=== PATIENT | female | born 1995 | race Caucasian/White ===

== ENCOUNTER 2021-09-14 15:29 | Inpatient (IN) | payer MEDICAID, OTHER ==
[~2021-09-14] VITALS: Ht 160 cm; Wt 52.6 kg
[2021-09-14] MEDS ORDERED: DIAZEPAM 5 MG/ML 2 ML SYRINGE ONE (16:10)
[2021-09-14] MEDS ORDERED: DiphenhydrAMINE HCL 50 MG/ML VIAL ONE (16:10)
[2021-09-14] MEDS ORDERED: HALOPERIDOL LACTATE 5 MG/ML VIAL ONE (16:10)
[2021-09-14] MEDS ORDERED: DIAZEPAM 5 MG/ML 2 ML SYRINGE IM ONE (16:15)
[2021-09-14] MEDS ORDERED: HALOPERIDOL LACTATE 5 MG/ML VIAL IM ONE (16:15)
[2021-09-14] MEDS ORDERED: DiphenhydrAMINE HCL 50 MG/ML VIAL IM ONE (16:15)
[2021-09-14 17:43] LABS: BASOPHILS % (AUTO) 0.7 % (0.0-2.0); EOSINOPHILS % (AUTO) 2.5 % (1.0-6.0); HEMATOCRIT 37.4 % (36-46); HEMOGLOBIN 12.5 g/dL (12.0-16.0); LYMPHOCYTES # (AUTO) 1.9 K/uL (1.0-4.8); LYMPHOCYTES % (AUTO) 27.9 % (22.0-44.0); MEAN CORPUSCULAR HEMOGLOBIN 29.4 pg (26.0-34.0); MEAN CORPUSCULAR HGB CONC 33.4 G/dL (31.0-37.0); MEAN CORPUSCULAR VOLUME 88 fL (80-100); MONOCYTES # (AUTO) 0.5 K/uL (0.1-1.0); MONOCYTES % (AUTO) 6.5 % (2.0-9.0); NEUTROPHILS # (AUTO) 4.3 K/uL (1.8-7.7); NEUTROPHILS % (AUTO) 62.4 % (40.0-70.0); PLATELET COUNT (AUTO) 470 K/uL (150-450); RED BLOOD CELL COUNT(AUTO) 4.24 MIL/uL (4.00-5.20); RED CELL DISTRIBUTION WIDTH 13.4 % (11.5-14.5)
[2021-09-14 17:53] LABS: ANION GAP 8 mmol/L (8-16); CALCIUM, TOTAL 9.5 mg/dL (8.8-10.5); CARBON DIOXIDE 30 mmol/L (22-29); CHLORIDE 103 mmol/L (98-107); CREATININE 0.77 mg/dL (0.60-1.30); GLUCOSE,RANDOM 89 mg/dL (70-110); POTASSIUM 4.3 mmol/L (3.5-5.1); SODIUM SERUM 141 mmol/L (136-145); UREA NITROGEN, BLOOD 11 mg/dL (7-18)
[2021-09-14 17:55] LABS: GLOMERULAR FILTR. RATE CALC > 60 mL/min (>60)
[2021-09-14 17:59] LABS: ALANINE AMINOTRANSFERASE 22 U/L (12-78); ALBUMIN 3.3 g/dL (3.4-5.0); ALKALINE PHOSPHATASE 77 U/L (46-116); ASPARTATE AMINOTRANSFERASE 17 U/L (15-37); BILIRUBIN,TOTAL 0.1 mg/dL (0.1-1.0); TOTAL PROTEIN, SERUM 7.4 g/dL (6.4-8.2)
[2021-09-14 19:50] LABS: COVID AG,FIA SOURCE NASAL SWAB
[2021-09-15] MEDS: ZOLPIDEM TARTRATE 10 MG TABLET PO PRN (01:37)
[2021-09-15] MEDS: HALOPERIDOL 5 MG TABLET PO PRN (01:37)
[2021-09-15] MEDS: LORazepam 2 MG TABLET PO PRN (01:38)
[2021-09-15 01:45] VITALS: BP 124/62
[2021-09-15] MEDS ORDERED: IBUPROFEN 400 MG TABLET PO PRN (07:45)
[2021-09-15] MEDS ORDERED: PETROLATUM,WHITE 28 GM JELLY TP PRN (07:45)
[2021-09-15] MEDS ORDERED: ONDANSETRON HCL 4 MG TABLET PO PRN (07:45)
[2021-09-15] MEDS ORDERED: ALBUTEROL SULFATE HFA 90 MCG/PUFF 8 GM INHALER IH PRN (07:45)
[2021-09-15] MEDS ORDERED: CloNIDine HCL 0.1 MG TABLET PO PRN (07:45)
[2021-09-15] MEDS ORDERED: LOPERAMIDE HCL 2 MG CAPSULE PO PRN (07:45)
[2021-09-15] MEDS ORDERED: MAGNESIUM HYDROXIDE SUSPENSION 30 ML UDCUP PO PRN (07:45)
[2021-09-15] MEDS ORDERED: DOCUSATE SODIUM 100 MG CAPSULE PO PRN (07:45)
[2021-09-15] MEDS ORDERED: ACETAMINOPHEN 325 MG TABLET PO PRN (07:45)
[2021-09-15] MEDS ORDERED: NICOTINE 14 MG/24 HOUR PATCH TD PRN (07:45)
[2021-09-15] MEDS ORDERED: MAG HYDROX/AL HYDROX/SIMETH ES 30 ML SUSPENSION UDCUP PO PRN (07:45)
[2021-09-15] MEDS ORDERED: GuaiFENesin/D-METHORPHAN [SUGAR-FREE] 200-20MG/10 ML SYRUP UDCUP PO PRN (07:45)
[2021-09-15 08:21] VITALS: BP 118/79
[2021-09-15] MEDS: AMOX TR/POT CLAV 500 MG/125 MG TABLET PO SCH ×2 (09:00→16:12)
[2021-09-15] MEDS: CIPROFLOXACIN HCL 0.2%/HYDROCORT 1% 10 ML OTIC SUSPENSION AS SCH ×2 (09:00→16:12)
[2021-09-15] MEDS: RisperiDONE 1 MG TABLET PO SCH (20:27)
[2021-09-16 08:12] VITALS: BP 122/72
[2021-09-16] MEDS: CIPROFLOXACIN HCL 0.2%/HYDROCORT 1% 10 ML OTIC SUSPENSION AS SCH ×2 (09:00→16:35)
[2021-09-16] MEDS: AMOX TR/POT CLAV 500 MG/125 MG TABLET PO SCH ×2 (09:00→16:35)
[2021-09-16] MEDS: RisperiDONE 1 MG TABLET PO SCH (20:20)
[2021-09-17] MEDS: ZOLPIDEM TARTRATE 10 MG TABLET PO PRN (00:09)
[2021-09-17] MEDS: HALOPERIDOL 5 MG TABLET PO PRN (00:09)
[2021-09-17] MEDS: LORazepam 2 MG TABLET PO PRN ×2 (00:09→09:15)
[2021-09-17] MEDS: AMOX TR/POT CLAV 500 MG/125 MG TABLET PO SCH ×2 (08:46→16:28)
[2021-09-17] MEDS: CIPROFLOXACIN HCL 0.2%/HYDROCORT 1% 10 ML OTIC SUSPENSION AS SCH ×2 (08:46→16:29)
[2021-09-17 09:07] VITALS: BP 114/70
[2021-09-17] MEDS: RisperiDONE 1 MG TABLET PO SCH (20:02)
[2021-09-17 20:40] VITALS: BP 116/67
[2021-09-18 08:39] VITALS: BP 109/66
[2021-09-18] MEDS: CIPROFLOXACIN HCL 0.2%/HYDROCORT 1% 10 ML OTIC SUSPENSION AS SCH ×2 (08:42→16:22)
[2021-09-18] MEDS: AMOX TR/POT CLAV 500 MG/125 MG TABLET PO SCH ×2 (08:44→16:22)
[2021-09-18] MEDS: LORazepam 2 MG TABLET PO PRN (08:51)
[2021-09-18] MEDS: RisperiDONE 1 MG TABLET PO SCH (20:23)
[2021-09-19 05:56] VITALS: BP 111/73
[2021-09-19] MEDS: CIPROFLOXACIN HCL 0.2%/HYDROCORT 1% 10 ML OTIC SUSPENSION AS SCH ×2 (09:00→16:08)
[2021-09-19] MEDS: MUPIROCIN CALCIUM 2% 22 GM OINTMENT NASAL SCH ×2 (09:00→16:08)
[2021-09-19] MEDS: AMOX TR/POT CLAV 500 MG/125 MG TABLET PO SCH ×2 (09:00→16:08)
[2021-09-19 19:34] VITALS: BP 112/71
[2021-09-19] MEDS: RisperiDONE 1 MG TABLET PO SCH (20:08)
[2021-09-19 20:20] VITALS: BP 114/73
[2021-09-19] MEDS: ZOLPIDEM TARTRATE 10 MG TABLET PO PRN (20:58)
[2021-09-20 08:04] VITALS: BP 113/64
[2021-09-20] MEDS: AMOX TR/POT CLAV 500 MG/125 MG TABLET PO SCH ×2 (09:12→16:32)
[2021-09-20] MEDS: CIPROFLOXACIN HCL 0.2%/HYDROCORT 1% 10 ML OTIC SUSPENSION AS SCH ×2 (09:12→16:32)
[2021-09-20] MEDS: MUPIROCIN CALCIUM 2% 22 GM OINTMENT NASAL SCH ×2 (09:13→16:26)
[2021-09-20] MEDS: LORazepam 2 MG TABLET PO PRN (14:21)
[2021-09-20 20:16] VITALS: BP 120/80
[2021-09-20] MEDS: RisperiDONE 1 MG TABLET PO SCH (20:26)
[2021-09-21 08:00] VITALS: BP 109/63
[2021-09-21] MEDS: AMOX TR/POT CLAV 500 MG/125 MG TABLET PO SCH ×2 (08:26→16:53)
[2021-09-21] MEDS: CIPROFLOXACIN HCL 0.2%/HYDROCORT 1% 10 ML OTIC SUSPENSION AS SCH ×2 (08:27→16:54)
[2021-09-21] MEDS: RisperiDONE 1 MG TABLET PO SCH ×2 (08:27→20:12)
[2021-09-21] MEDS: MUPIROCIN CALCIUM 2% 22 GM OINTMENT NASAL SCH ×2 (08:27→16:53)
[2021-09-21] MEDS: LORazepam 2 MG TABLET PO PRN (18:07)
[2021-09-21] MEDS: ZOLPIDEM TARTRATE 10 MG TABLET PO PRN (20:13)
[2021-09-21 20:18] VITALS: BP 118/79
[2021-09-22 08:21] VITALS: BP 112/69
[2021-09-22] MEDS: CIPROFLOXACIN HCL 0.2%/HYDROCORT 1% 10 ML OTIC SUSPENSION AS SCH ×2 (08:53→17:21)
[2021-09-22] MEDS: MUPIROCIN CALCIUM 2% 22 GM OINTMENT NASAL SCH ×2 (08:54→17:21)
[2021-09-22] MEDS: AMOX TR/POT CLAV 500 MG/125 MG TABLET PO SCH ×2 (08:54→17:21)
[2021-09-22] MEDS: LORazepam 2 MG TABLET PO PRN ×2 (10:19→18:46)
[2021-09-22] MEDS: RisperiDONE 2 MG TABLET PO SCH (20:07)
[2021-09-22] MEDS: ZOLPIDEM TARTRATE 10 MG TABLET PO PRN (20:09)
[2021-09-22 20:19] VITALS: BP 122/78
[2021-09-23] MEDS: RisperiDONE 2 MG TABLET PO SCH ×2 (08:46→20:09)
[2021-09-23] MEDS: MUPIROCIN CALCIUM 2% 22 GM OINTMENT NASAL SCH ×2 (08:46→17:04)
[2021-09-23] MEDS: AMOX TR/POT CLAV 500 MG/125 MG TABLET PO SCH ×2 (08:46→17:03)
[2021-09-23] MEDS: CIPROFLOXACIN HCL 0.2%/HYDROCORT 1% 10 ML OTIC SUSPENSION AS SCH ×2 (08:46→17:03)
[2021-09-23 09:36] VITALS: BP 121/71
[2021-09-23] MEDS: LORazepam 2 MG TABLET PO PRN (17:09)
[2021-09-23 20:33] VITALS: BP 101/60
[2021-09-23] MEDS: ZOLPIDEM TARTRATE 10 MG TABLET PO PRN (20:57)
[2021-09-24] MEDS: RisperiDONE 2 MG TABLET PO SCH ×2 (08:57→21:50)
[2021-09-24] MEDS: CIPROFLOXACIN HCL 0.2%/HYDROCORT 1% 10 ML OTIC SUSPENSION AS SCH ×2 (08:57→17:42)
[2021-09-24] MEDS: AMOX TR/POT CLAV 500 MG/125 MG TABLET PO SCH (08:57)
[2021-09-24] MEDS: LORazepam 2 MG TABLET PO PRN ×2 (09:19→14:33)
[2021-09-24 09:22] VITALS: BP 100/65
[2021-09-24 20:23] VITALS: BP 104/61
[2021-09-25 08:00] VITALS: BP 118/69
[2021-09-25] MEDS: RisperiDONE 2 MG TABLET PO SCH (08:54)
[2021-09-25] MEDS ORDERED: RISP2TAB86 PO (09:27)
== END 2021-09-25 14:10 | disposition home or self-care (01) | DRG 750 ==
LOC: EMS 15:29 → B3A 21:57
PROVIDERS: ADMIT Psychiatry & Neurology Psychiatry; ATTEND Psychiatry & Neurology Psychiatry
DX: F20.1 Disorganized schizophrenia (principal); Z91.14 Patient's other noncompliance with medication regimen; D75.839 Thrombocytosis, unspecified; F10.10 Alcohol abuse, uncomplicated; F15.10 Other stimulant abuse, uncomplicated; Z20.822 Contact with and (suspected) exposure to COVID-19; Z79.899 Other long term (current) drug therapy; Z59.02 Unsheltered homelessness
CPT/HCPCS: 80053; 85025; 87081; 99285; G0480; J1200; J1630

== ENCOUNTER 2021-09-26 20:12 | Inpatient (IN) | payer MEDICAID ==
[~2021-09-26] VITALS: Ht 160 cm; Wt 61.6 kg
[~2021-09-26 20:12] MED LIST: RISP2TAB86 PO
[2021-09-26] MEDS ORDERED: ZOLPIDEM TARTRATE 10 MG TABLET PO PRN (21:45)
[2021-09-26 22:58] VITALS: BP 132/78
[2021-09-27] MEDS ORDERED: PETROLATUM,WHITE 28 GM JELLY TP PRN (06:45)
[2021-09-27] MEDS ORDERED: CloNIDine HCL 0.1 MG TABLET PO PRN (06:45)
[2021-09-27] MEDS ORDERED: ALBUTEROL SULFATE HFA 90 MCG/PUFF 8 GM INHALER IH PRN (06:45)
[2021-09-27] MEDS ORDERED: NICOTINE 14 MG/24 HOUR PATCH TD PRN (06:45)
[2021-09-27] MEDS ORDERED: IBUPROFEN 400 MG TABLET PO PRN (06:45)
[2021-09-27] MEDS ORDERED: MAGNESIUM HYDROXIDE SUSPENSION 30 ML UDCUP PO PRN (06:45)
[2021-09-27] MEDS ORDERED: GuaiFENesin/D-METHORPHAN [SUGAR-FREE] 200-20MG/10 ML SYRUP UDCUP PO PRN (06:45)
[2021-09-27] MEDS ORDERED: ONDANSETRON HCL 4 MG TABLET PO PRN (06:45)
[2021-09-27] MEDS ORDERED: LOPERAMIDE HCL 2 MG CAPSULE PO PRN (06:45)
[2021-09-27] MEDS ORDERED: MAG HYDROX/AL HYDROX/SIMETH ES 30 ML SUSPENSION UDCUP PO PRN (06:45)
[2021-09-27] MEDS ORDERED: DOCUSATE SODIUM 100 MG CAPSULE PO PRN (06:45)
[2021-09-27 07:16] LABS: BASOPHILS % (AUTO) 0.6 % (0.0-2.0); EOSINOPHILS % (AUTO) 3.8 % (1.0-6.0); HEMATOCRIT 30.1 % (36-46); HEMOGLOBIN 10.1 g/dL (12.0-16.0); LYMPHOCYTES % (AUTO) 34.4 % (22.0-44.0); MEAN CORPUSCULAR HEMOGLOBIN 29.9 pg (26.0-34.0); MEAN CORPUSCULAR HGB CONC 33.6 G/dL (31.0-37.0); MEAN CORPUSCULAR VOLUME 89 fL (80-100); MONOCYTES # (AUTO) 0.5 K/uL (0.1-1.0); MONOCYTES % (AUTO) 7.9 % (2.0-9.0); NEUTROPHILS # (AUTO) 3.1 K/uL (1.8-7.7); NEUTROPHILS % (AUTO) 53.3 % (40.0-70.0); PLATELET COUNT (AUTO) 338 K/uL (150-450); RED BLOOD CELL COUNT(AUTO) 3.38 MIL/uL (4.00-5.20); RED CELL DISTRIBUTION WIDTH 13.4 % (11.5-14.5)
[2021-09-27 07:56] LABS: ALANINE AMINOTRANSFERASE 52 U/L (12-78); ALBUMIN 3.4 g/dL (3.4-5.0); ALKALINE PHOSPHATASE 47 U/L (46-116); ANION GAP 8 mmol/L (8-16); ASPARTATE AMINOTRANSFERASE 34 U/L (15-37); BILIRUBIN,TOTAL 0.2 mg/dL (0.1-1.0); CALCIUM, TOTAL 8.2 mg/dL (8.8-10.5); CARBON DIOXIDE 28 mmol/L (22-29); CHLORIDE 105 mmol/L (98-107); CREATININE 0.64 mg/dL (0.60-1.30); GLUCOSE,RANDOM 91 mg/dL (70-110); POTASSIUM 4.3 mmol/L (3.5-5.1); SODIUM SERUM 141 mmol/L (136-145); TOTAL PROTEIN, SERUM 6.3 g/dL (6.4-8.2); UREA NITROGEN, BLOOD 9 mg/dL (7-18)
[2021-09-27 07:57] LABS: CHOL/HDL RATIO 2.1 (3.9-5.7); CHOLESTEROL 173 mg/dL (131-200); GLOMERULAR FILTR. RATE CALC > 60 mL/min (>60); HCG,QUANTITATIVE < 1 mIU/mL (0-6); HDL CHOLESTEROL 84 mg/dL (40-60); LDL CHOL (CALC.) 84 mg/dL (0-130); THYROID STIMULATING HORMONE 2.67 uIU/mL (0.36-3.74); TRIGLYCERIDES 25 mg/dL (15-150)
[2021-09-27 08:16] LABS: HEMOGLOBIN A1C 5.3 % (3.8-5.6)
[2021-09-27 08:27] VITALS: BP 116/77
[2021-09-27 08:48] LABS: GLUCOMETER DEV NAME(LOC) POC.BV
[2021-09-27] MEDS: RisperiDONE 2 MG TABLET PO SCH ×2 (09:22→20:41)
[2021-09-27] MEDS: LORazepam 2 MG TABLET PO PRN (09:22)
[2021-09-27 20:05] VITALS: BP 117/72
[2021-09-28] MEDS: RisperiDONE 2 MG TABLET PO SCH ×2 (08:35→20:24)
[2021-09-28] MEDS: LORazepam 2 MG TABLET PO PRN ×3 (08:35→17:57)
[2021-09-28 15:55] VITALS: BP 105/70
[2021-09-28] MEDS: ACETAMINOPHEN 325 MG TABLET PO PRN (15:58)
[2021-09-28 20:09] VITALS: BP 100/62
[2021-09-29] MEDS: RisperiDONE 2 MG TABLET PO SCH ×2 (08:24→21:30)
[2021-09-29] MEDS: LORazepam 2 MG TABLET PO PRN (12:43)
[2021-09-30] MEDS: RisperiDONE 2 MG TABLET PO SCH ×2 (08:36→21:56)
[2021-09-30 08:40] VITALS: BP 102/65
[2021-09-30] MEDS: LORazepam 2 MG TABLET PO PRN ×2 (10:32→15:05)
[2021-09-30] MEDS: HALOPERIDOL 5 MG TABLET PO PRN (17:24)
[2021-10-01 08:35] VITALS: BP 110/65
[2021-10-01] MEDS: RisperiDONE 2 MG TABLET PO SCH ×2 (09:10→20:53)
[2021-10-01] MEDS: LORazepam 2 MG TABLET PO PRN ×2 (09:56→16:11)
[2021-10-01] MEDS: HALOPERIDOL 5 MG TABLET PO PRN ×2 (09:56→16:11)
[2021-10-01 16:13] VITALS: BP 101/57
[2021-10-01 21:30] VITALS: BP 105/61
[2021-10-02 08:37] VITALS: BP 122/69
[2021-10-02] MEDS: RisperiDONE 2 MG TABLET PO SCH ×2 (09:28→20:19)
[2021-10-02] MEDS: LORazepam 2 MG TABLET PO PRN ×2 (09:28→17:47)
[2021-10-02 14:21] LABS: GLUCOMETER DEV NAME(LOC) POC.BV
[2021-10-02 17:47] VITALS: BP 111/60
[2021-10-02] MEDS: ACETAMINOPHEN 325 MG TABLET PO PRN (17:47)
[2021-10-02 21:15] VITALS: BP 101/60
[2021-10-03] MEDS: RisperiDONE 2 MG TABLET PO SCH ×2 (08:00→20:11)
[2021-10-03] MEDS: LORazepam 2 MG TABLET PO PRN ×3 (08:25→20:11)
[2021-10-03] MEDS: HALOPERIDOL 5 MG TABLET PO PRN ×2 (08:25→12:33)
[2021-10-03 14:24] VITALS: BP 100/60
[2021-10-03 15:30] VITALS: BP 107/70
[2021-10-03] MEDS: ACETAMINOPHEN 325 MG TABLET PO PRN (15:35)
[2021-10-03 16:07] VITALS: BP 111/69
[2021-10-03 21:56] VITALS: BP 111/69
[2021-10-04 08:07] VITALS: BP 115/66
[2021-10-04] MEDS: LORazepam 2 MG TABLET PO PRN ×2 (08:27→20:05)
[2021-10-04] MEDS: RisperiDONE 2 MG TABLET PO SCH ×2 (08:27→20:04)
[2021-10-04 20:13] VITALS: BP 123/77
[2021-10-05 04:18] VITALS: BP 132/78
[2021-10-05 08:14] VITALS: BP 118/73
[2021-10-05] MEDS: LORazepam 2 MG TABLET PO PRN (08:55)
[2021-10-05] MEDS: RisperiDONE 2 MG TABLET PO SCH (08:55)
[2021-10-05] MEDS: HALOPERIDOL 5 MG TABLET PO PRN (10:51)
== END 2021-10-05 15:25 | disposition left against medical advice (07) | DRG 750 ==
LOC: B3A 21:45
PROVIDERS: ADMIT Psychiatry & Neurology Psychiatry; ATTEND Psychiatry & Neurology Psychiatry
DX: F20.0 Paranoid schizophrenia (principal); Z91.14 Patient's other noncompliance with medication regimen; D64.9 Anemia, unspecified; F10.10 Alcohol abuse, uncomplicated; F15.10 Other stimulant abuse, uncomplicated; Z20.822 Contact with and (suspected) exposure to COVID-19; Z53.29 Procedure and treatment not carried out because of patient's decision for other reasons; R10.13 Epigastric pain; Z71.41 Alcohol abuse counseling and surveillance of alcoholic; Z79.899 Other long term (current) drug therapy
CPT/HCPCS: 80053; 80061; 83036; 84439; 84443; 84702; 85025; 87081; Q0162